=== PATIENT | female | born 1985 | race African-American/Black ===

== ENCOUNTER 2016-09-17 18:12 | Emergency (ER) | payer BC ==
[~2016-09-17] VITALS: Ht 172.7 cm; Wt 88.5 kg
[~2016-09-17 18:12] MED LIST: COLACE100 MG PO
[2016-09-17] MEDS ORDERED: NORFLEX100 MG PO (20:16)
[2016-09-17] MEDS ORDERED: NAPROSYN500 MG PO (20:16)
[2016-09-17 20:24] VITALS: BP 141/76
== END 2016-09-17 20:24 | disposition home or self-care (01) ==
LOC: ER 18:12
DX: S16.1XXA Strain of muscle, fascia and tendon at neck level, initial encounter (principal); S29.012A Strain of muscle and tendon of back wall of thorax, initial encounter; V43.52XA Car driver injured in collision with other type car in traffic accident, initial encounter; Y93.89 Activity, other specified; Y92.89 Other specified places as the place of occurrence of the external cause; Y99.8 Other external cause status